=== PATIENT | female | born 1960 | race Caucasian/White ===

== ENCOUNTER 2018-04-08 01:03 | Emergency (ER) | payer BC, OTHER ==
[~2018-04-08] VITALS: Ht 170.2 cm; Wt 54.9 kg
[~2018-04-08 01:03] MED LIST: ASPI-391 PO; MULT-506 PO
[2018-04-08 01:09] VITALS: TEMP 36.6; Ht 170.2 cm; Wt 54.9 kg
[2018-04-08] MEDS ORDERED: RANITIDINE HCL 150 MG TAB PO STA (01:27)
--- NOTE | 2018-04-08 01:27 | EMERGENCY ROOM VISIT NOTE ---
History Report prepared by Elida: Keo Kebede Under the Supervision of: Dr. Lou Foster D.O. First contact with patient: 01:16 Chief Complaint: BITE Stated Complaint: BEE STINGS History of Present Illness The patient is a 57 year old female who presents to the Emergency Room with complaints of constant, burning, bilateral ankle pain beginning today. The patient states that she was cutting her grass today and accidentally cut through some yellow jackets. She notes that she was stung by yellow jackets in both ankles and has been having a burning sensation in her ankles since. She reports that she did not get stung anywhere else. The patient states that she tried soaking her feet and ankles in water with Epsom salts with no relief. She notes that she took Benadryl at 2230 and has also been using Calamine lotion with no relief. She denies any SOB and abdominal pain. She reports that she does not have a history of diabetes and heart problems. The patient states that she drove herself to the emergency department today. Source of History: patient Onset: today Position: ankle (bilateral) Quality: burning Timing: constant Associated Symptoms: No SOB, No abdominal pain Review of Systems See HPI for pertinent positives & negatives. A total of 10 systems reviewed and were otherwise negative. Past Medical & Surgical Medical Problems: (1) No chronic problems Family History No pertinent family history stated. Social History Smoking Status: Former Smoker Marital Status: single Occupation Status: employed Current/Historical Medications Scheduled Njllnhe-Uqqssxqqugwqf-Nmaaivgh (Excedrin Extra Strength), 2 TAB PO QAM Cholecalciferol (Vitamin D3), 1 CAP PO DAILY Multivitamin (Multivitamin), 1 TAB PO DAILY Allergies Coded Allergies: No Known Allergies (Unverified , NONE, 04/08/18) Physical Exam Vital Signs Date Time Temp Pulse Resp B/P (MAP) Pulse Ox O2 Delivery O2 Flow Rate FiO2 04/08/18 02:50 70 20 127/57 98 Room Air 04/08/18 01:09 36.6 82 18 124/71 99 Room Air Physical Exam Heart: Regular rate and rhythm. There is a normal S1 and S2 with no murmurs, clicks, or gallops appreciated. Lungs: Clear to auscultation bilaterally with no wheezes, rales, or rhonchi. Abdomen: Soft, completely nontender, nondistended, with good bowel sounds. There are no palpable pulsatile masses or hepatosplenomegaly. There is no guarding, rigidity, or rebound noted. Extremities: No evidence of cyanosis, clubbing, or edema. There are easily palpable peripheral pulses. Skin: warm and dry with good turgor and no rashes. Edema and erythema over both aspects of medial ankles. Medical Decision & Procedures Medications Administered Medications (Trade) Dose Ordered Sig/Rolando Route Start Time Stop Time Status Last Admin Dose Admin Ranitidine HCl (zANTac TAB) 150 mg NOW STAT PO 04/08/18 01:27 04/08/18 01:28 DC 04/08/18 01:27 150 MG Lidocaine HCl (Xylocaine Jelly 2%) 5 ml NOW STAT EXT 04/08/18 01:37 04/08/18 01:38 DC 04/08/18 01:37 5 ML Triamcinolone Acetonide (Aristocort 0.1% Oint) 1 appln NOW STAT EXT 04/08/18 02:20 04/08/18 02:21 DC 04/08/18 02:20 1 APPLN Procedure Ranitidine HCl 150mg PO. Lidocaine HCl 5ml EXT. Triamcinolone Acetonide 1 appln EXT. ED Course 0122: Past medical records reviewed. The patient was evaluated in room B3. A complete history and physical exam was performed. 0127: Ranitidine HCl 150mg PO 0137: Lidocaine HCl 5ml EXT 0217: I reevaluated and updated the patient. She said that she had no relief with the lidocaine. I ordered her steroid cream. 0220: Triamcinolone Acetonide 1 appln EXT 0255: Upon reevaluation, the patient is stable and states that her burning is less frequent. I discussed findings and results with her. She verbalized agreement of the treatment plan. The patient was discharged home. Medical Decision The patient is a 57 year old female who presents to the Emergency Room with complaints of constant, burning, bilateral ankle pain beginning today. Differential diagnoses include: bee stings, insect bites, and allergic reaction. The patient suffered bee stings from yellow jackets earlier this evening. She was unable to sleep tonight because of the burning sensation surrounding the bee stings. She did finally get some relief with the topical steroid ointment. I encouraged her to continue using Benadryl and Zantac at home. I suggested that she watch for signs of infection. She can also continue to apply a hydrocortisone ointment/cream. Medication Reconcilliation Current Medication List: was personally reviewed by me Blood Pressure Screening Patient's blood pressure: Normal blood pressure Blood pressure disposition: Did not require urgent referral Impression Primary Impression: Bee sting reaction Scribe Attestation The scribe's documentation has been prepared under my direction and personally reviewed by me in its entirety. I confirm that the note above accurately reflects all work, treatment, procedures, and medical decision making performed by me. Departure Information Dispostion Home / Self-Care Referrals Ant Gonzalez M.D. (PCP) Forms HOME CARE DOCUMENTATION FORM, IMPORTANT VISIT INFORMATION Patient Instructions [facility] Additional Instructions benadryl 50mg and zantac 75 mg every 6 hours for itch/burn. Elevate your feet and ice your feet. You can use hydrocortisone cream on the ankles. Return to the ER for any signs of infection Problem Qualifiers Primary Impression: Bee sting reaction Encounter type: initial encounter Injury intent: accidental or unintentional Qualified Codes: T63.441A - Toxic effect of venom of bees, accidental (unintentional), initial encounter
[2018-04-08] MEDS ORDERED: LIDOCAINE HCL 2% JELLY 30 ML TUBE EXT ONE (01:30)
[2018-04-08] MEDS ORDERED: LIDOCAINE 2% JELLY 5 ML TUBE EXT STA (01:37)
[2018-04-08] MEDS ORDERED: CHOL2000 PO (01:58)
[2018-04-08] MEDS ORDERED: TRIAMCINOLONE ACET 0.1% OINT 80 GM TUBE EXT STA (02:20)
[2018-04-08 02:50] VITALS: BP 127/57; PULSE 70; O2SAT 98
== END 2018-04-08 03:08 | disposition home or self-care (01) ==
LOC: C.EDB 01:04
DX: T63.441A Toxic effect of venom of bees, accidental (unintentional), initial encounter (principal); M25.571 Pain in right ankle and joints of right foot; M25.572 Pain in left ankle and joints of left foot; R20.8 Other disturbances of skin sensation; Z87.891 Personal history of nicotine dependence